=== PATIENT | female | born 1980 | race Caucasian/White ===

== ENCOUNTER 2017-12-26 12:27 | Inpatient (IN) ==
[2017-12-26 13:20] LABS: Bilirubin,Urine Negative (Negative); Blood,Urine Negative (Negative); Clarity,Urine Clear (Clear); Color,Urine Dark Yellow (Yellow); Glucose,Urine (UA) Normal (Normal); Ketones,Urine 40 mg/dL (Negative); Leukocyte Esterase,Urine Negative (Negative); Nitrite,Urine Negative (Negative); PH,Urine 6.5 pH Units (5.0-8.0); Protein,Urine Trace mg/dL (Neg-Trace); Specific Gravity,Urine > 1.030 (1.010-1.025); Urobilinogen,Urine Normal (Normal)
[2017-12-26 13:25] LABS: Hyaline Casts,Urine None Seen per lpf (None-Few); RBC,Urine 0-3 per hpf (0-3); Squamous Epithelial Cell,Urine Many per lpf (None-Few)
[2017-12-26 13:42] LABS: Amorphous Sediment,Urine Few (Few); Bacteria,Urine Few per hpf (None-Few); Mucus,Urine Many (Few)
[2017-12-26 13:50] LABS: Basophils % 0.3 %; Eosinophils # 0.1 K/mcL (0.0-0.6); Eosinophils % 0.7 %; Hematocrit 32.8 % (35.3-44.9); Hemoglobin 10.7 g/dL (11.5-15.4); Immature Granulocytes % 0.6 % (0-4); Lymphocytes % 18.1 %; Mean Corpuscular HGB Conc 32.6 g/dL (31.6-35.5); Mean Corpuscular Hemoglobin 26.2 pg (28.0-33.3); Mean Corpuscular Volume 80.2 fL (83.0-100.0); Mean Platelet Volume 10.4 fL (9.4-12.4); Monocytes # 0.7 K/mcL (0.0-1.3); Monocytes % 6.5 %; Neutrophils # 8.2 K/mcL (1.6-8.9); Platelet Count 221 K/mcL (140-400); Red Blood Count 4.09 M/mcL (3.82-4.97); Segmented Neutrophils % 73.8 %
[2017-12-26 13:54] LABS: Alanine Aminotransferase 7 Units/L (7-52); Aspartate Amino Transferase 11 Units/L (13-39); BUN/Creatinine Ratio 23 (6-26); Blood Urea Nitrogen 10 mg/dL (6-20); Lactate Dehydrogenase 152 Units/L (140-271); Uric Acid 4.4 mg/dL (2.3-7.6); eGFR For African Americans > 60 (> 60); eGFR For Non-African Americans > 60 (> 60)
--- NOTE | 2017-12-26 13:55 | OB/GYN History & Physical ---
Date of Encounter: 12/26/17 Time of Encounter: 13:54 Assessment and Plan (1) 36 weeks gestation of Current visit: Yes Status: Acute (2) Intrauterine Current visit: Yes Status: Acute Admit to L&D for observation of labor Expectant management Labs-CBC and clot to hold Continuous electronic monitoring Pain management plan is natural childbirth Anticipate Dr. Recio is OB log operations coordinator and is available as needed. History of Present Illness Chief complaint: PIH eval HPI: Ms. Patel is a 37 year old female, 013, with an estimated date of of 01/20/18 at 36 weeks 3 days gestation dated by LMP. She presents for PI eval from Dr. Viera's office. She denies headaches, blurry vision, right upper quadrant pain. She endorses good movement and denies contractions, leaking of fluid, vaginal bleeding. Her course has been uncomplicated. She is followed by Dr. Viera throughout her . records are available electronically and have been reviewed. Labs: O+ GBS negative Hep B negative HIV negative T. Palladium negative GC/CL negative Rubella immune Varicella immune Past Med Surg Social Fam HX - Past Medical History Medical history: no medical history Psychiatric history: depression - Past Surgical History Surgical History: no surgical history - Social History Smoking Status: Never smoker Alcohol use: none Drug use: none - Family History Mother Living Status: Still Living Hx Family Medical Disorders: No (no significant medical history) Obstetrical History - Pregnancies : 5 Para: 3 Term: 3 (1: 02/24/2004, vaginal delivery, EGA 37 weeks, male, 7 lb 3 oz;2: 2007, vaginal delivery, EGA 40-2 weeks, male, 8 lb 3 oz;3 12/13/2009, vaginal delivery, male, 6 lb 10 oz) : 0 Ab's: 1 (4: mab 06/2016) Livin Medications and Allergies Vits #90/Iron Fum/FA [ Formula Tablet] 1 each PO 12/26/17 [ History] Protonix 1 tab PO DAILY 12/26/17 [History] 3 Allergy/AdvReac Type Severity Reaction Status Date / Time No Known Allergies Allergy Verified 12/26/17 12:59 Review of System OB All systems PM: reviewed and no additional remarkable complaints except as stated Exam - Constitutional Constitutional: well developed, well nourished, no acute distress, average body habitus - HEENT HEENT: PERRL, Normocephaly, Mucus Membranes Moist - Neck Neck exam: full ROM - Lungs Respiratory exam: CTAB - Cardiovascular Cardiovascular exam: RRR, +S1, +S2 - Breasts Breast: bilateral: normal - Abdomen Abdomen: Present: bowel sounds normal, gravid, non tender - Extremities Extremities exam: normal capillary refill, normal inspection, radial pulses palpable and symmetrical - Vulva Vulva: bilateral: normal - Vagina Vagina: Present: normal moisture - Cervix Dilation: 5 Effacement: 60 Station: -1 - Uterus Uterus exam: Present: normal size, normal contour - Adnexa Adnexa: bilateral: normal - Anus/Rectum Anus/Rectum: Present: normal perianal skin Results Result Diagrams: 12/26/17 12:55 12/26/17 12:55 Abnormal lab results Hgb 10.7 g/dL (11.5-15.4) L 12/26/17 12:55 Hct 32.8 % (35.3-44.9) L 12/26/17 12:55 MCV 80.2 fL (83.0-100.0) L 12/26/17 12:55 MCH 26.2 pg (28.0-33.3) L 12/26/17 12:55 Creatinine 0.44 mg/dL (0.60-1.20) L 12/26/17 12:55 AST 11 Units/L (13-39) L 12/26/17 12:55 Ur Specific [place] > 1.030 (1.010-1.025) H 12/26/17 12:55 Urine Ketones 40 mg/dL (Negative) H 12/26/17 12:55 Urine Microscopic WBC 3-5 per hpf (0-3) H 12/26/17 12:55 Ur Squamous Epith Cells Many per lpf (None-Few) H 12/26/17 12:55 Urine Mucus Many (Few) H 12/26/17 12:55 All other labs normal. - VTE Reasons for not Prescribing Prophylaxis: Treatment not Indicated - Low risk for VTE
[2017-12-26] MEDS ORDERED: Ringers Solution, Lactated 1,000 ML IVC ONE (14:20)
[2017-12-26 15:20] LABS: Creatinine,Urine 237 mg/dL; Protein/Creatinine Ratio,Urine 0.12 mg/mg (0.00-0.20)
[2017-12-26] MEDS ORDERED: Ondansetron 4 MG/2 ML VIAL IVP PRN (15:37)
[2017-12-26] MEDS ORDERED: *HR* Nalbuphine 10 MG/ML AMPUL IVP PRN (15:37)
[2017-12-26] MEDS ORDERED: Metoclopramide 10 MG/2 ML VIAL IVP PRN (15:37)
[2017-12-26] MEDS ORDERED: Naloxone 0.4 MG/ML INJ IVP PRN (15:37)
[2017-12-26] MEDS ORDERED: Famotidine 20 MG/2 ML VIAL IVP PRN (15:37)
--- NOTE | 2017-12-26 15:44 | OB Labor Progress Note ---
Date of Encounter: 12/26/17 Time of Encounter: 15:40 Labor Progress Note - Subjective Subjective: Patient reports she is moderately more uncomfortable with her contractions. She rates them at about 6 out of 10. - Cervix Cervix: 6/70/-2 - Heart Tones Heart Tones: Baseline 130 Moderate variability Accelerations present 15x15 No decelerations FHR Category I - [place]: Contractions every 3-5 minutes and palpate moderate - Interventions Interventions: SVE - Plan Plan: Continue expectant management Encourage frequent movement and position changes Anticipate
[2017-12-26] MEDS ORDERED: Ringers Solution, Lactated 1,000 ML IVC SCH (15:45)
[2017-12-26 15:57] LABS: Amphetamine Screen,Urine Negative ng/mL (Cutoff=1000); Barbiturate Screen,Urine Negative ng/mL (Cutoff=200); Benzodiazepines Screen,Urine Negative ng/mL (Cutoff=200); Cannabinoid Screen,Urine Negative ng/mL (Cutoff = 50); Cocaine Screen,Urine Negative ng/mL (Cutoff= 300); Opiate Screen,Urine Negative ng/mL (Cutoff=300); Phencyclidine Screen,Urine Negative ng/mL (Cutoff=25)
[2017-12-26] MEDS ORDERED: D5% in 0.45% NACL 1,000 ML IVC SCH (16:15)
--- NOTE | 2017-12-26 19:01 | OB Labor Progress Note ---
Date of Encounter: 12/26/17 Time of Encounter: 18:58 Labor Progress Note - Subjective Subjective: Patient still comfortable with contractions. - Cervix Cervix: 6/70/-2 - Heart Tones Heart Tones: Baseline 155 Moderate variability Accelerations present 15 x 15 No decelerations FHR category I - [place]: Contractions every 4-5 and palpate mild to moderate - Interventions Interventions: SVE AROM-large amount of clear fluid - Plan Plan: Continue expectant management Epidural on request Start Pitocin and titrate to adequate pattern Anticipate
[2017-12-26] MEDS ORDERED: Oxytocin 20 units/ LR 1000 mL 20 UNIT/1,000 ML BAG IVC SCH (19:15)
[2017-12-26] MEDS ORDERED: Ringers Solution, Lactated 1,000 ML ONE (23:03)
--- NOTE | 2017-12-26 23:53 | OB/GYN Procedure Note ---
Delivery - Delivery Date: 12/26/17 Provider: Aimee Carr Intrapartum events: none Delivery induction: none Delivery augmentation: rupture of membranes, pitocin Delivery monitor: external FHT, external uterine, internal uterine Anesthesia: local Quantitated Blood Loss: 100 - (s) A Infant Delivery Date: 12/26/17 Infant Delivery Time: 23:08 Presentation: vertex Position: OP Route of delivery: Gender: Male Viability: Viable Pounds: 6 Ounces: 15 Weight Gram: 3.155 kg at 1 minute: 7 at 5 mins: 9 Shoulder Dystocia: not encountered Specimens collected: cord blood Placenta: spontaneous Cord: nuchal cord, 3 umbilical vessels, delivered through nuchal - Repair Episiotomy: none Laceration Description: Perineal - 1st Degree - Complications Delivery complications: none Delivery comments: Jorge is a 37-year-old G5 now [id number] who is admitted for active labor. She progressed with AROM and Pitocin augmentation to the second stage of labor. She pushed for about an hour. She delivered a viable male infant, direct OP over a first-degree laceration. The was placed on the maternal abdomen where the mouth and nares were bulb suctioned. The appeared stunned and so the umbilical cord was milked. After a few seconds the babay began to cry spontaneously. A nuchal cord 1 was identified. The infant was delivered through the nuchal cord. scores were 7 at 1 minute and 9 at 5 minutes. The weighed 6 lbs. 15 oz. (3155g). The placenta delivered (Chávez) spontaneously, intact, with a three-vessel cord. Inspection revealed a first- degree laceration. Laceration was repaired with 3-0 Vicryl. The repair was done under local anesthesia. The uterus was firm with no active bleeding. EBL was 100 mL. Placenta was sent to pathology. Blood gases were not sent. Mom and baby are skin to skin following delivery. - Disposition Mom disposition: stable in LDR disposition: stable in LDR
[2017-12-27] MEDS ORDERED: Acetaminophen 325 MG TABLET PO PRN (00:10)
[2017-12-27] MEDS ORDERED: Benzocaine/Menthol 56 GM AEROSOL SPRAY TP PRN (00:10)
[2017-12-27] MEDS ORDERED: Oxytocin 20 units/ LR 1000 mL 20 UNIT/1,000 ML BAG IVC SCH (00:15)
[2017-12-27] MEDS: Ibuprofen 600 MG TABLET PO PRN ×3 (00:25→22:53)
[2017-12-27 04:54] LABS: Basophils % 0.1 %; Eosinophils % 0.1 %; Hematocrit 32.6 % (35.3-44.9); Hemoglobin 10.5 g/dL (11.5-15.4); Immature Granulocytes % 0.6 % (0-4); Lymphocytes # 1.3 K/mcL (0.6-4.6); Mean Corpuscular HGB Conc 32.2 g/dL (31.6-35.5); Mean Corpuscular Hemoglobin 26.2 pg (28.0-33.3); Mean Corpuscular Volume 81.3 fL (83.0-100.0); Mean Platelet Volume 10.4 fL (9.4-12.4); Monocytes # 0.8 K/mcL (0.0-1.3); Monocytes % 5.4 %; Nucleated Red Blood Cells 0.1 /100 WBC (0); Platelet Count 193 K/mcL (140-400); Red Blood Count 4.01 M/mcL (3.82-4.97); Red Cell Distribution Width 13.9 % (11.5-14.5); Segmented Neutrophils % 84.8 %
[2017-12-27] MEDS: Prenatal Vit/FA 1 EACH TABLET PO SCH (10:56)
--- NOTE | 2017-12-27 11:40 | OB/GYN Progress Note ---
Date of Encounter: 12/27/17 Time of Encounter: 11:38 - Assessment and Plan (1) Vaginal delivery Current Visit: Yes Status: Acute Stable PPD #1 Continue current management Anticipate DC tomorrow. Subjective - Subjective Patient reports: appetite normal, voiding normally, pain well controlled, ambulating normally [place]: doing well, nursing well Objective - Latest Vital Signs Latest vital signs: Vital Signs Temp Pulse Resp BP Pulse Ox 12/27/17 08:11 98.0 F 74 16 100/63 98 12/27/17 04:00 98.0 F 85 14 131/68 98 12/27/17 03:00 98.5 F 85 14 124/67 98 12/27/17 02:00 98.2 F 75 14 123/70 97 Intake and Output 12/26/17 12/27/17 12/27/17 23:59 07:59 15:59 Output Total 600 / 600 Balance -600 / -600 Output: Urine 600 / 600 Other: Weight 98.2 kg 93.984 kg Patient Weight 12/27/17 23:59 Weight 93.984 kg - Exam Lungs: bilateral: normal Chest: Normal S1, Normal S2 Extremities: Present: normal Abdomen: Present: normal appearance, soft Uterus: Present: firm Uterus Position: At Umbilicus - Labs Labs: Laboratory Results - last 24 hr 12/26/17 12/26/17 12/26/17 12:55 12:55 12:55 WBC 11.1 RBC 4.09 Hgb 10.7 L Hct 32.8 L MCV 80.2 L MCH 26.2 L MCHC 32.6 RDW 14.0 Plt Count 221 MPV 10.4 Immature Gran % 0.6 Seg Neutrophils % 73.8 Lymphocytes % 18.1 Monocytes % 6.5 Eosinophils % 0.7 Basophils % 0.3 Neutrophils # 8.2 Lymphocytes # 2.0 Monocytes # 0.7 Eosinophils # 0.1 Basophils # 0.0 Nucleated RBCs/100 WBC BUN Creatinine Est GFR ( Amer) Est GFR (Non-Af Amer) BUN/Creatinine Ratio Uric Acid AST ALT Lactate Dehydrogenase Urine Color Dark Yellow Urine Clarity Clear Urine pH 6.5 Ur Specific [place] > 1.030 H Urine Protein Trace Urine Glucose (UA) Normal Urine Ketones 40 H Urine Blood Negative Urine Nitrite Negative Urine Bilirubin Negative Urine Urobilinogen Normal Ur Leukocyte Esterase Negative Urine Microscopic RBC 0-3 Urine Microscopic WBC 3-5 H Ur Squamous Epith Cells Many H Amorphous Sediment Few Urine Bacteria Few Hyaline Casts None Seen Urine Mucus Many H Urine Creatinine 237 Protein/Creatinin Ratio 0.12 Urine Total Protein 29 H Urine Opiates Screen Negative Ur Barbiturates Screen Negative Ur Phencyclidine Scrn Negative Ur Amphetamines Screen Negative U Benzodiazepines Scrn Negative Urine Cocaine Screen Negative U Marijuana (THC) Screen Negative Blood Type 12/26/17 12/26/17 12/27/17 12:55 12:55 04:16 WBC 14.2 H RBC 4.01 Hgb 10.5 L Hct 32.6 L MCV 81.3 L MCH 26.2 L MCHC 32.2 RDW 13.9 Plt Count 193 MPV 10.4 Immature Gran % 0.6 Seg Neutrophils % 84.8 Lymphocytes % 9.0 Monocytes % 5.4 Eosinophils % 0.1 Basophils % 0.1 Neutrophils # 12.0 H Lymphocytes # 1.3 Monocytes # 0.8 Eosinophils # 0.0 Basophils # 0.0 Nucleated RBCs/100 WBC 0.1 H BUN 10 Creatinine 0.44 L Est GFR ( Amer) > 60 Est GFR (Non-Af Amer) > 60 BUN/Creatinine Ratio 23 Uric Acid 4.4 AST 11 L ALT 7 Lactate Dehydrogenase 152 Urine Color Urine Clarity Urine pH Ur Specific [place] Urine Protein Urine Glucose (UA) Urine Ketones Urine Blood Urine Nitrite Urine Bilirubin Urine Urobilinogen Ur Leukocyte Esterase Urine Microscopic RBC Urine Microscopic WBC Ur Squamous Epith Cells Amorphous Sediment Urine Bacteria Hyaline Casts Urine Mucus Urine Creatinine Protein/Creatinin Ratio Urine Total Protein Urine Opiates Screen Ur Barbiturates Screen Ur Phencyclidine Scrn Ur Amphetamines Screen U Benzodiazepines Scrn Urine Cocaine Screen U Marijuana (THC) Screen Blood Type O POSITIVE
[2017-12-28 07:55] VITALS: BP 111/68
[2017-12-28] MEDS: Ibuprofen 600 MG TABLET PO PRN (10:34)
[2017-12-28] MEDS: Prenatal Vit/FA 1 EACH TABLET PO SCH (10:35)
--- NOTE | 2017-12-28 10:46 | Discharge Summary ---
Date of Encounter: 12/28/17 Time of Encounter: 10:43 - Discharge Diagnosis (1) Vaginal delivery Priority: Primary Status: Acute Comments: Doing well. Ambulating and voiding without difficulty. Tolerating regular diet. Mild/moderate abdominal cramping well controlled with Ibuprofen. [place]och[place] light and without clots. States baby without difficulty. Desires to be discharged today. - Discharge Medications Prescriptions: Ibuprofen [Motrin] 600 mg PO Q6HR PRN #30 tablet PRN Reason: Cramping Breast Pump [BREAST PUMP] 1 each .ROUTE AD #1 each Docusate [Colace] 100 mg PO BID #20 capsule Home Medications: Vits #90/Iron Fum/FA [ Formula Tablet] 1 each PO 12/26/17 [ History] Protonix 1 tab PO DAILY 12/26/17 [History] Acetaminophen [Tylenol] 650 mg PO Q6HR PRN tablet 12/28/17 [Rx] Benzocaine/Menthol [place] [Dermoplast [place]] 1 appl TP QID PRN aerosol 12/28/17 [Rx] Breast Pump [BREAST PUMP] 1 each .ROUTE AD #1 each 12/28/17 [Rx] Docusate [Colace] 100 mg PO BID #20 capsule 12/28/17 [Rx] Ibuprofen [Motrin] 600 mg PO Q6HR PRN #30 tablet 12/28/17 [Rx] Allergies/Adverse Reactions: 3 Allergy/AdvReac Type Severity Reaction Status Date / Time No Known Allergies Allergy Verified 12/26/17 12:59 Data Procedures and tests throughout hospitalization: Laboratory Tests 12/26/17 12/26/17 12/26/17 12:55 12:55 12:55 WBC 11.1 RBC 4.09 Hgb 10.7 L Hct 32.8 L MCV 80.2 L MCH 26.2 L MCHC 32.6 RDW 14.0 Plt Count 221 MPV 10.4 Immature Gran % 0.6 Seg Neutrophils % 73.8 Lymphocytes % 18.1 Monocytes % 6.5 Eosinophils % 0.7 Basophils % 0.3 Neutrophils # 8.2 Lymphocytes # 2.0 Monocytes # 0.7 Eosinophils # 0.1 Basophils # 0.0 Nucleated RBCs/100 WBC BUN Creatinine Est GFR ( Amer) Est GFR (Non-Af Amer) BUN/Creatinine Ratio Uric Acid AST ALT Lactate Dehydrogenase Urine Color Dark Yellow Urine Clarity Clear Urine pH 6.5 Ur Specific [place] > 1.030 H Urine Protein Trace Urine Glucose (UA) Normal Urine Ketones 40 H Urine Blood Negative Urine Nitrite Negative Urine Bilirubin Negative Urine Urobilinogen Normal Ur Leukocyte Esterase Negative Urine Microscopic RBC 0-3 Urine Microscopic WBC 3-5 H Ur Squamous Epith Cells Many H Amorphous Sediment Few Urine Bacteria Few Hyaline Casts None Seen Urine Mucus Many H Urine Creatinine 237 Protein/Creatinin Ratio 0.12 Urine Total Protein 29 H Urine Opiates Screen Negative Ur Barbiturates Screen Negative Ur Phencyclidine Scrn Negative Ur Amphetamines Screen Negative U Benzodiazepines Scrn Negative Urine Cocaine Screen Negative U Marijuana (THC) Screen Negative Blood Type 12/26/17 12/26/17 12/27/17 12:55 12:55 04:16 WBC 14.2 H RBC 4.01 Hgb 10.5 L Hct 32.6 L MCV 81.3 L MCH 26.2 L MCHC 32.2 RDW 13.9 Plt Count 193 MPV 10.4 Immature Gran % 0.6 Seg Neutrophils % 84.8 Lymphocytes % 9.0 Monocytes % 5.4 Eosinophils % 0.1 Basophils % 0.1 Neutrophils # 12.0 H Lymphocytes # 1.3 Monocytes # 0.8 Eosinophils # 0.0 Basophils # 0.0 Nucleated RBCs/100 WBC 0.1 H BUN 10 Creatinine 0.44 L Est GFR ( Amer) > 60 Est GFR (Non-Af Amer) > 60 BUN/Creatinine Ratio 23 Uric Acid 4.4 AST 11 L ALT 7 Lactate Dehydrogenase 152 Urine Color Urine Clarity Urine pH Ur Specific [place] Urine Protein Urine Glucose (UA) Urine Ketones Urine Blood Urine Nitrite Urine Bilirubin Urine Urobilinogen Ur Leukocyte Esterase Urine Microscopic RBC Urine Microscopic WBC Ur Squamous Epith Cells Amorphous Sediment Urine Bacteria Hyaline Casts Urine Mucus Urine Creatinine Protein/Creatinin Ratio Urine Total Protein Urine Opiates Screen Ur Barbiturates Screen Ur Phencyclidine Scrn Ur Amphetamines Screen U Benzodiazepines Scrn Urine Cocaine Screen U Marijuana (THC) Screen Blood Type O POSITIVE Date of admission: 12/26/17 12:27 Primary care physician: Sheldon Garcia Consults: 12/27/17 00:10 Consult to Logistics Program Manager [CONS] Routine Comment: Vaginal delivery, consult needed Discharging clinician: Aimee Palma - Patient Status Disposition: Home, Self-Care Condition: Good Functional capacity at discharge: independent ambulation Overall status at discharge: patient is progressing back to baseline - Discharge Instructions Follow Up With: Sheldon Garcia DO [Primary Care Provider] - Aimee Carr [Advanced Practice Nurse] - - Diet and Activity Activity: resume usual activities as tolerated Diet: advance to your usual diet Hospital Course Reason for admission: active labor, labor Delivery: Episiotomy: none Laceration: 1st degree Other procedures: none complications: none Discharge diagnosis: delivery [place] baby: male Time spent discussing smoking cessation with patient: 3 to 10 minutes Time Attestation: Total time spent providing and/or coordinating discharge services: Time Spent: Less than 30 minutes Exam - Constitutional Vitals: Temp Pulse Resp BP Pulse Ox 98.2 F 97 16 111/68 95 12/28/17 07:53 12/28/17 07:53 12/28/17 09:00 12/28/17 07:53 12/28/17 07:53 General appearance IM: cooperative, A&O X 3, pleasant, no acute distress, answers questions appropriately - Respiratory Respiratory exam: Present: CTAB - Cardiovascular Cardiovascular exam IM: Present: RRR - GI/Abdominal GI/Abdominal exam IM: normal bowel sounds - Rectal Rectal exam: deferred - Uterine Tone: Firm Uterus Position: At Umbilicus, Midline - Extremities Exam Extremities exam IM: Present: full ROM, normal inspection, radial pulses palpable and symmetrical - Neurological Exam Neurological exam: alert, normal gait, oriented X3
== END 2017-12-28 12:00 | disposition home or self-care (01) | DRG 775 ==
LOC: 1NENULAB → OBSVTOIN 12:27 → 1NENULAB 19:02 → 1NENUOBS 12-27 01:46
PROVIDERS: ADMIT Obstetrics & Gynecology; ATTEND Obstetrics & Gynecology